=== PATIENT | female | born 1940 | race Caucasian/White ===

== ENCOUNTER 2017-12-13 09:59 | Day surgery (SDC) | payer OTHER ==
[2017-12-13] MEDS ORDERED: FENTAnyl 50 MCG/ML VIAL (11:11)
[2017-12-13] MEDS ORDERED: MIDAZOLAM 1 MG/ML 2 ML INJ (11:11)
[2017-12-13] MEDS ORDERED: PROPOFOL 20 ML (11:11)
== END 2017-12-13 17:12 | disposition home or self-care (01) ==
LOC: GIL 09:59
DX: Z12.11 Encounter for screening for malignant neoplasm of colon (principal); K64.8 Other hemorrhoids
CPT/HCPCS: 45378